=== PATIENT | female | born 1965 | race Caucasian/White ===

== ENCOUNTER 2017-10-21 10:52 | Emergency (ER) | payer OTHER ==
[~2017-10-21] VITALS: Ht 157.5 cm; Wt 95.3 kg
[~2017-10-21 10:52] MED LIST: FLUCONAZOLE150 MG; GILTUSS LIQUID237 M1 PO; LEVAQUIN750 MG; OSEL75CA PO
[2017-10-21] MEDS ORDERED: NEURONTIN300 MG (11:14)
[2017-10-21] MEDS ORDERED: ESKALITH300 MG (11:15)
== END 2017-10-21 13:55 | disposition home or self-care (01) ==
LOC: ER 10:52
DX: J06.9 Acute upper respiratory infection, unspecified (principal)

== ENCOUNTER 2017-12-20 12:02 | Emergency (ER) | payer OTHER ==
[~2017-12-20] VITALS: Ht 157.5 cm; Wt 96.2 kg
[~2017-12-20 12:02] MED LIST changes: +ESKALITH300 MG; +NEURONTIN300 MG
== END 2017-12-20 16:02 | disposition home or self-care (01) ==
LOC: ER 12:02
DX: B34.9 Viral infection, unspecified (principal)